=== PATIENT | male | born 1965 | race American Indian/Alaskan Native ===

== ENCOUNTER 2016-10-26 20:51 | Emergency (ER) | payer BC ==
[2016-10-27 01:27] LABS: Bilirubin,Urine NEG (Negative); Blood,Urine SM (Negative); Ketones,Urine NEG (Negative); Leukocyte Esterase,Urine NEG (Negative); Nitrite,Urine NEG (Negative); Urobilinogen,Urine < 2.0 mg/dL (<2.0); WBC,Urine < 1.0 /HPF (0.0-6.0)
[2016-10-27 01:27] LABS: Hematocrit 43.6 % (35.5-45.6); Hemoglobin 14.7 gm/dl (11.8-15.2); Mean Corpuscular HGB Conc 34 % (32-34); Mean Corpuscular Hemoglobin 29 pg (28-32); Mean Corpuscular Volume 86 fl (84-94); Platelet Count 206 K/mm3 (140-440); Red Blood Count 5.08 M/mm3 (3.65-5.03); Red Cell Distribution Width 14.1 % (13.2-15.2); White Blood Count 6.2 K/mm3 (4.5-11.0)
[2016-10-27 01:45] LABS: Anion Gap 16 mmol/L; BUN/Creatinine Ratio 16.66; Blood Urea Nitrogen 15 mg/dL (9-20); Calcium 9.2 mg/dL (8.4-10.2); Carbon Dioxide 27 mmol/L (22-30); Chloride 100.6 mmol/L (98-107); Glucose 47 mg/dL (75-100); Sodium 140 mmol/L (137-145)
--- NOTE | 2016-10-27 01:55 | XRay Report ---
FINAL REPORT EXAM: XR CHEST ROUTINE 2V HISTORY: hypoglycemia, questionable pneumonia TECHNIQUE: Frontal and lateral chest x-ray. PRIORS: None. FINDINGS: Cardiac and mediastinal silhouette within normal limits. Lungs are normally expanded. No focal consolidation, pleural effusion or apparent pneumothorax. IMPRESSION: 1. No acute consolidation.
[2016-10-27] MEDS ORDERED: D50W (25GM) IV ONE ×3 (03:34→05:59)
--- NOTE | 2016-10-27 03:52 | Emergency Department Report ---
ED General Adult HPI - General Chief complaint: Hypoglycemia Stated complaint: LOW BLOOD GLUCOSE Time Seen by Provider: 10/27/16 03:40 Source: patient Mode of arrival: Ambulatory Limitations: No Limitations - History of Present Illness Initial comments: This is a 51-year-old male. He is previously unknown to me. He has a past medical history of diabetes. He reports that he takes insulin in the morning and insulin at night. He reports that he takes 16 units of Novolin N in the morning, and 7 units of novolin R in the am as well; at nighttime he typically takes 10 units of Novolin N and he takes 4 units of Novolin r. 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 Patient reports that he ate normally yesterday, but while at work did not eat much of anything and began to feel like his sugar was "low." He denies headache, neck pain, chest pain, abdominal pain, shortness of breath, cough, irritative and obstructive urinary symptoms. In the ER, patient was found to be hypoglycemic, he was fed, given D50, and remained asymptomatic. He has no complaints at this time, and he reports that his sensation of hypoglycemia has subjectively resolved, and he reports that he has someone at home to watch over him. -: Gradual Consistency: now resolved Improves with: eating, medication Worsens with: other (not eating) Associated Symptoms: denies: confusion, chest pain, cough, diaphoresis, fever/ chills, headaches, loss of appetite, malaise, nausea/vomiting, rash, shortness of breath, syncope, weakness - Related Data Home Medications Medication Instructions Recorded Confirmed Last Taken Insulin NPH, Human [NovoLIN N] 1,000 unit SQ ONCE 10/27/16 10/27/16 Unknown NovoLIN 70/30 10/27/16 Unknown Allergies Allergy/AdvReac Type Severity Reaction Status Date / Time No Known Allergies Allergy Unverified 03/27/14 11:17 ED Review of Systems ROS: Stated complaint: LOW BLOOD GLUCOSE Other details as noted in HPI Constitutional: denies: fever Eyes: denies: vision change ENT: denies: epistaxis Respiratory: denies: cough Cardiovascular: denies: chest pain Gastrointestinal: denies: abdominal pain Genitourinary: denies: dysuria Musculoskeletal: denies: back pain Skin: denies: lesions Neurological: denies: headache Psychiatric: denies: anxiety ED Past Medical Hx - Past Medical History Hx Hypertension: Yes Hx Diabetes: Yes - Surgical History Past Surgical History?: No - Social History Smoking Status: Never Smoker Substance Use Type: Alcohol - Medications Home Medications: Home Medications Medication Instructions Recorded Confirmed Last Taken Type Insulin NPH, Human [NovoLIN N] 1,000 unit SQ ONCE 10/27/16 10/27/16 Unknown History NovoLIN 70/30 10/27/16 Unknown History ED Physical Exam - General Limitations: No Limitations General appearance: alert, in no apparent distress - Head Head exam: Present: atraumatic, normocephalic - Eye Eye exam: Present: normal appearance, EOMI. Absent: nystagmus - ENT ENT exam: Present: normal exam, normal orophraynx, mucous membranes moist, normal external ear exam - Neck Neck exam: Present: normal inspection, full ROM. Absent: tenderness, meningismus - Respiratory Respiratory exam: Present: normal lung sounds bilaterally. Absent: respiratory distress, wheezes, rales, rhonchi, stridor, chest wall tenderness, accessory muscle use, decreased breath sounds, prolonged expiratory - Cardiovascular Cardiovascular Exam: Present: regular rate, normal rhythm, normal heart sounds. Absent: bradycardia, tachycardia, irregular rhythm, systolic murmur, diastolic murmur, rubs, gallop - GI/Abdominal GI/Abdominal exam: Present: soft, normal bowel sounds. Absent: distended, tenderness, guarding, rebound, rigid, pulsatile mass - Rectal Rectal exam: Present: deferred - Extremities Exam Extremities exam: Present: normal inspection, full ROM, normal capillary refill. Absent: tenderness, pedal edema, joint swelling, calf tenderness - Back Exam Back exam: Present: normal inspection, full ROM. Absent: tenderness, CVA tenderness (R), CVA tenderness (L), muscle spasm, paraspinal tenderness, vertebral tenderness - Neurological Exam Neurological exam: Present: alert, oriented X3, normal gait, other (Extraocular movements intact. Tongue midline. No facial droop. Facial sensation intact to light touch in the V1, V2, V3 distribution bilaterally. 5 and 5 strength in 4 extremities.. Sensation is intact to light touch in 4 extremities.). Absent : motor sensory deficit - Psychiatric Psychiatric exam: Present: normal affect, normal mood - Skin Skin exam: Present: warm, dry, intact, normal color. Absent: rash ED Course Vital Signs 10/26/16 22:18 Temperature 98.7 F Pulse Rate 77 Respiratory 18 Rate Blood Pressure 149/86 O2 Sat by Pulse 99 Oximetry ED Medical Decision Making - Lab Data Result diagrams: 10/27/16 01:17 10/27/16 01:17 Vital Signs 10/26/16 22:18 Temperature 98.7 F Pulse Rate 77 Respiratory 18 Rate Blood Pressure 149/86 O2 Sat by Pulse 99 Oximetry Lab Results 10/26/16 10/27/16 10/27/16 Range/Units 22:18 01:11 01:17 WBC 6.2 (4.5-11.0) K/mm3 RBC 5.08 H (3.65-5.03) M/mm3 Hgb 14.7 (11.8-15.2) gm/dl Hct 43.6 (35.5-45.6) % MCV 86 (84-94) fl MCH 29 (28-32) pg MCHC 34 (32-34) % RDW 14.1 (13.2-15.2) % Plt Count 206 (140-440) K/mm3 Sodium (137-145) mmol/L Potassium (3.6-5.0) mmol/L Chloride (98-107) mmol/L Carbon Dioxide (22-30) mmol/L Anion Gap mmol/L BUN (9-20) mg/dL Creatinine (0.8-1.5) mg/dL Estimated GFR ml/min BUN/Creatinine Ratio % Glucose (75-100) mg/dL POC Glucose 262 H (70-105) Calcium (8.4-10.2) mg/dL Urine Color Yellow (Yellow) Urine Turbidity Clear (Clear) Urine pH 6.0 (5.0-7.0) Ur Specific [place] 1.015 (1.003-1.030) Urine Protein 100 mg/dl (Negative) mg/dL Urine Glucose (UA) >=500 (Negative) mg/dL Urine Ketones Neg (Negative) mg/dL Urine Blood Sm (Negative) Urine Nitrite Neg (Negative) Urine Bilirubin Neg (Negative) Urine Urobilinogen < 2.0 (<2.0) mg/dL Ur Leukocyte Esterase Neg (Negative) Urine WBC (Auto) < 1.0 (0.0-6.0) /HPF Urine RBC (Auto) 1.0 (0.0-6.0) /HPF U Epithel Cells (Auto) < 1.0 (0-13.0) /HPF 10/27/16 10/27/16 Range/Units 01:17 04:06 WBC (4.5-11.0) K/mm3 RBC (3.65-5.03) M/mm3 Hgb (11.8-15.2) gm/dl Hct (35.5-45.6) % MCV (84-94) fl MCH (28-32) pg MCHC (32-34) % RDW (13.2-15.2) % Plt Count (140-440) K/mm3 Sodium 140 (137-145) mmol/L Potassium 4.0 (3.6-5.0) mmol/L Chloride 100.6 (98-107) mmol/L Carbon Dioxide 27 (22-30) mmol/L Anion Gap 16 mmol/L BUN 15 (9-20) mg/dL Creatinine 0.9 (0.8-1.5) mg/dL Estimated GFR > 60 ml/min BUN/Creatinine Ratio 16.66 % Glucose 47 L (75-100) mg/dL POC Glucose 228 H (70-105) Calcium 9.2 (8.4-10.2) mg/dL Urine Color (Yellow) Urine Turbidity (Clear) Urine pH (5.0-7.0) Ur Specific [place] (1.003-1.030) Urine Protein (Negative) mg/dL Urine Glucose (UA) (Negative) mg/dL Urine Ketones (Negative) mg/dL Urine Blood (Negative) Urine Nitrite (Negative) Urine Bilirubin (Negative) Urine Urobilinogen (<2.0) mg/dL Ur Leukocyte Esterase (Negative) Urine WBC (Auto) (0.0-6.0) /HPF Urine RBC (Auto) (0.0-6.0) /HPF U Epithel Cells (Auto) (0-13.0) /HPF - Radiology Data Radiology results: report reviewed, image reviewed interpreted by me: X-ray of the chest is negative for acute disease - Medical Decision Making Differential diagnosis: Hypoglycemia, now resolved, pneumonia, urinary tract infection, in adequate oral intake Assessment and plan: 51-year-old male with resolved hypoglycemia, most likely in the context of an adequate oral intake and dehydration. He was observed in the ER for a prolonged period of time. He was given D50, head, and did not clinically decompensate. He does not take any oral hypoglycemic medications. He reports that he is somewhat home to watch over him. He is suitable for discharge at this point in time, is instructed to make certain that he eats adequately while working in the hot sun. Critical care attestation.: If time is entered above; I have spent that time in minutes in the direct care of this critically ill patient, excluding procedure time. ED Disposition Clinical Impression: History of hypoglycemia Disposition: DC-01 TO HOME OR SELFCARE Is pt being admited?: No Does the pt Need Aspirin: No Condition: Stable Instructions: Diabetic Hypoglycemia (ED) Additional Instructions: Make certain to eat enough food while working in the hot sun. Follow-up with your primary care doctor within the next 2 weeks. Return to the ER readily with fevers, chills, chest pain, shortness of breath, lethargy, irritability, projectile vomiting, change in mental status, severe pain. Referrals: OSEAS MENDEZ JR, MD [Primary Care Provider] - 3-5 Days
[2016-10-27 04:43] VITALS: BP 160/79
== END 2016-10-27 05:00 | disposition home or self-care (01) ==
LOC: ED 20:51
DX: E11.649 Type 2 diabetes mellitus with hypoglycemia without coma (principal); I10 Essential (primary) hypertension; Z79.4 Long term (current) use of insulin
CPT/HCPCS: 36415; 71020; 80048; 81001; 82962; 85027; 96374

== ENCOUNTER 2017-05-21 07:27 | Emergency (ER) | payer BC ==
[2017-05-21 08:34] LABS: Basophils % (Auto) 1.1 % (0.0-1.8); Eosinophils # (Auto) 0.1 K/mm3 (0.0-0.4); Hematocrit 47.2 % (35.5-45.6); Hemoglobin 15.5 gm/dl (11.8-15.2); Lymphocytes # (Auto) 1.2 K/mm3 (1.2-5.4); Lymphocytes % (Auto) 28.8 % (13.4-35.0); Mean Corpuscular HGB Conc 33 % (32-34); Mean Corpuscular Hemoglobin 28 pg (28-32); Mean Corpuscular Volume 85 fl (84-94); Monocytes # (Auto) 0.6 K/mm3 (0.0-0.8); Monocytes % (Auto) 15.5 % (0.0-7.3); Platelet Count 240 K/mm3 (140-440); Red Blood Count 5.54 M/mm3 (3.65-5.03)
[2017-05-21 08:56] LABS: BUN/Creatinine Ratio 17; Blood Urea Nitrogen 12 mg/dL (9-20); Calcium 8.9 mg/dL (8.4-10.2); Hemolysis Index 12
[2017-05-21 11:54] VITALS: BP 191/94
[2017-05-21] MEDS ORDERED: BACTRIM DS PO ONE (12:36)
--- NOTE | 2017-05-21 12:42 | Emergency Department Report ---
ED Lower Extremity HPI - General Chief Complaint: Extremity Injury, Lower Stated Complaint: LEFT ANKLE/FOOT SWOLLEN Time Seen by Provider: 05/21/17 11:50 Source: patient Mode of arrival: Ambulatory Limitations: No Limitations - History of Present Illness Initial Comments: 51-year-old male with a past medical history of insulin-dependent diabetes and hypertension presents to the hospital complaining of left great toe pain and swelling 1 week. Patient thinks he has an ingrown toenail. Patient has chronic numbness and pain secondary to neuropathy and recent out of his gabapentin. Pain is moderate in intensity and worse with palpation. No complaints of fever or other controlled glucose. Patient does have a tank filler Dr. Collier but he cannot remember the whole name. - Related Data Home Medications Medication Instructions Recorded Confirmed Last Taken Insulin NPH, Human [NovoLIN N] 1,000 unit SQ ONCE 10/27/16 10/27/16 Unknown NovoLIN 70/30 10/27/16 Unknown Previous Rx's Medication Instructions Recorded Last Taken Type Gabapentin [Neurontin] 300 mg PO Q8HR #90 capsule 05/21/17 Unknown Rx Sulfamethoxazole/Trimethoprim 1 each PO BID #20 tablet 05/21/17 Unknown Rx [Bactrim DS TAB] traMADol [Ultram 50 MG tab] 50 mg PO Q6HR PRN #20 tablet 05/21/17 Unknown Rx Allergies Allergy/AdvReac Type Severity Reaction Status Date / Time No Known Allergies Allergy Verified 05/21/17 07:48 ED Review of Systems ROS: Stated complaint: LEFT ANKLE/FOOT SWOLLEN Other details as noted in HPI Comment: All other systems reviewed and negative Other: Constitutional: No fevers chills Eyes: No eye pain visual changes ENT: No ear pain or throat pain Neck: Denies pain Respiratory: Denies cough wheezing shortness of breath Cardiovascular: Denies chest pain, palpitations, syncope GI: Denies abdominal pain, nausea, vomiting, diarrhea : Denies dysuria, urinary frequency, or urgency Musculoskeletal: as per hpi Skin: as per hpi Neurologic: Denies headache, numbness, weakness Psychiatric: Denies suicidal ideation, hallucinations ED Past Medical Hx - Past Medical History Hx Hypertension: Yes Hx Diabetes: Yes - Surgical History Past Surgical History?: No - Social History Smoking Status: Never Smoker Substance Use Type: None - Medications Home Medications: Home Medications Medication Instructions Recorded Confirmed Last Taken Type Insulin NPH, Human [NovoLIN N] 1,000 unit SQ ONCE 10/27/16 10/27/16 Unknown History NovoLIN 70/30 10/27/16 Unknown History Gabapentin [Neurontin] 300 mg PO Q8HR #90 capsule 05/21/17 Unknown Rx Sulfamethoxazole/Trimethoprim 1 each PO BID #20 tablet 05/21/17 Unknown Rx [Bactrim DS TAB] traMADol [Ultram 50 MG tab] 50 mg PO Q6HR PRN #20 tablet 05/21/17 Unknown Rx ED Physical Exam - General Limitations: No Limitations - Other Other exam information: General: No limitations, patient is alert in no acute distress Head exam: Atraumatic, normocephalic Eyes exam: Normal appearance ENT: Moist mucous membrane, normal oropharynx Neck exam: Normal inspection, full range of motion, no meningismus nontender Respiratory exam: Clear to auscultation bilateral, no wheezes, rales, crackles Cardiovascular: Normal rate and rhythm, normal heart sounds Abdomen: Soft, nondistended, and nontender, with normal bowel sounds, no rebound, or guarding Extremity: Full range of motion Back: Normal Inspection, full range of motion, no tenderness Neurologic: Alert, oriented x3, cranial nerves intact, no motor or sensory deficit Psychiatric: normal affect, normal mood Skin: Left great toe ingrown nail causing a infection at the medial nail bed. Minimal purulent drainage. No warmth or erythema. 2+ DP pulse ED Course Vital Signs 05/21/17 05/21/17 05/21/17 07:49 11:53 11:55 Temperature 98.4 F 98.7 F Pulse Rate 70 77 Respiratory 16 16 Rate Blood Pressure 142/77 Blood Pressure 191/94 [Right] O2 Sat by Pulse 100 100 Oximetry ED Lower Extremity MDM - Lab Data Result diagrams: 05/21/17 08:15 05/21/17 08:15 Lab Results 05/21/17 05/21/17 Range/Units 08:15 08:15 WBC 4.0 L (4.5-11.0) K/mm3 RBC 5.54 H (3.65-5.03) M/mm3 Hgb 15.5 H (11.8-15.2) gm/dl Hct 47.2 H (35.5-45.6) % MCV 85 (84-94) fl MCH 28 (28-32) pg MCHC 33 (32-34) % RDW 13.0 L (13.2-15.2) % Plt Count 240 (140-440) K/mm3 Lymph % (Auto) 28.8 (13.4-35.0) % [place] % (Auto) 15.5 H (0.0-7.3) % Eos % (Auto) 3.0 (0.0-4.3) % Baso % (Auto) 1.1 (0.0-1.8) % Lymph # 1.2 (1.2-5.4) K/mm3 [place] # 0.6 (0.0-0.8) K/mm3 Eos # 0.1 (0.0-0.4) K/mm3 Baso # 0.0 (0.0-0.1) K/mm3 Seg Neutrophils % 51.6 (40.0-70.0) % Seg Neutrophils # 2.1 (1.8-7.7) K/mm3 Sodium 136 L (137-145) mmol/L Potassium 4.5 (3.6-5.0) mmol/L Chloride 100.5 (98-107) mmol/L Carbon Dioxide 24 (22-30) mmol/L Anion Gap 16 mmol/L BUN 12 (9-20) mg/dL Creatinine 0.7 L (0.8-1.5) mg/dL Estimated GFR > 60 ml/min BUN/Creatinine Ratio 17 % Glucose 240 H (75-100) mg/dL Calcium 8.9 (8.4-10.2) mg/dL - Medical Decision Making Patient has signs of a ingrown nail with infection. Will be treated with antibiotic, warm soaks, and recommended tank filler follow-up given that he is a diabetic. No signs of sepsis at this time. Patient informed to return if symptoms worsen - Differential Diagnosis paronychia, ingrown nail, cellulitis, abscess Critical Care Time: No Critical care attestation.: If time is entered above; I have spent that time in minutes in the direct care of this critically ill patient, excluding procedure time. ED Disposition Clinical Impression: Ingrown toenail of left foot with infection, Diabetes Disposition: TO HOME OR SELFCARE Is pt being admited?: No Condition: Stable Instructions: Paronychia (ED), Toenail/Fingernail Removal (ED), Diabetes Mellitus Type 2 in Adults (ED) Additional Instructions: Perform warm soaks and cleaning water in order to encourage drainage. Take the antibiotic as prescribed. Continue to monitor your sugars. If your sugars are uncontrolled, you feel sick, develop fevers, or worsening infection please return to the ER otherwise follow with your tank filler early next week. Prescriptions: Gabapentin [Neurontin] 300 mg PO Q8HR #90 capsule Sulfamethoxazole/Trimethoprim [Bactrim DS TAB] 1 each PO BID #20 tablet traMADol [Ultram 50 MG tab] 50 mg PO Q6HR PRN #20 tablet PRN Reason: Pain Referrals: your, tank filler [Other] - 2-3 Days PRIMARY CARE,MD [Primary Care Provider] - 3-5 Days Time of Disposition: 13:44
== END 2017-05-21 14:05 | disposition home or self-care (01) ==
LOC: ED 07:27
DX: L60.0 Ingrowing nail (principal); E11.9 Type 2 diabetes mellitus without complications; G62.9 Polyneuropathy, unspecified; I10 Essential (primary) hypertension
CPT/HCPCS: 36415; 80048; 85025; 99283

== ENCOUNTER 2018-10-15 09:33 | Emergency (ER) | payer BC ==
[2018-10-15 09:43] VITALS: BP 142/78
[2018-10-15] MEDS ORDERED: TETRACAINE 0.5% OU STA (10:17)
--- NOTE | 2018-10-15 10:29 | Emergency Department Report ---
ED Eye Problem HPI - General Chief complaint: Eye Problems Stated complaint: RT EYE RED/DISCHARGE/PAIN Time Seen by Provider: 10/15/18 10:07 Source: patient Mode of arrival: Ambulatory Limitations: No Limitations - History of Present Illness Initial comments: Mr. Garcia is a very pleasant 53 yo male with history of well-controlled diabetes mellitus for the past 30 years presents with visual disturbance in the right eye. He states that he also has hypertension. His PCP is Dr. Nicholas in [facility]. He remembers sleeping on the right side of his face. He woke up with visual disturbance and bloody-looking shield in the superior temporal region. no previous history of eye issues. no fever. no discharge. he states that he sees a bloody wig hair in his eye view. Normal vision in the left eye. MD chief complaint: vision change -: This morning Onset Description: awoke with symptoms Location: right eye Place: home If Injury: none Eye Symptoms: decreased vision Severity: moderate Consistency: constant Context: other (no trauma no previous history) Associated Symptoms: none - Related Data Home Medications Medication Instructions Recorded Confirmed Last Taken Insulin NPH, Human [NovoLIN N] 1,000 unit SQ ONCE 10/27/16 10/27/16 Unknown NovoLIN 70/30 10/27/16 Unknown Previous Rx's Medication Instructions Recorded Last Taken Type Gabapentin [Neurontin] 300 mg PO Q8HR #90 capsule 05/21/17 Unknown Rx Sulfamethoxazole/Trimethoprim 1 each PO BID #20 tablet 05/21/17 Unknown Rx [Bactrim DS TAB] traMADol [Ultram 50 MG tab] 50 mg PO Q6HR PRN #20 tablet 05/21/17 Unknown Rx Allergies Allergy/AdvReac Type Severity Reaction Status Date / Time No Known Allergies Allergy Verified 05/21/17 07:48 ED Review of Systems ROS: Stated complaint: RT EYE RED/DISCHARGE/PAIN Other details as noted in HPI Comment: All other systems reviewed and negative Constitutional: denies: fever, malaise Respiratory: denies: orthopnea Cardiovascular: denies: chest pain ED Past Medical Hx - Past Medical History Previous Medical History?: Yes Hx Hypertension: Yes Hx Diabetes: Yes - Surgical History Past Surgical History?: No - Social History Smoking Status: Never Smoker Substance Use Type: None - Medications Home Medications: Home Medications Medication Instructions Recorded Confirmed Last Taken Type Insulin NPH, Human [NovoLIN N] 1,000 unit SQ ONCE 10/27/16 10/27/16 Unknown History NovoLIN 70/30 10/27/16 Unknown History Gabapentin [Neurontin] 300 mg PO Q8HR #90 capsule 05/21/17 Unknown Rx Sulfamethoxazole/Trimethoprim 1 each PO BID #20 tablet 05/21/17 Unknown Rx [Bactrim DS TAB] traMADol [Ultram 50 MG tab] 50 mg PO Q6HR PRN #20 tablet 05/21/17 Unknown Rx ED Physical Exam - General Limitations: No Limitations General appearance: alert, in no apparent distress - Head Head exam: Present: atraumatic, normocephalic - Eye Eye exam: Present: conjunctival injection (right eye with conjunctival injection and medial pterygium no covering pupil) - Expanded Eye Exam Expanded Eyelids: Erythema: Right Pupils: Regular, Round: Bilateral, Reactive: Bilateral, Mydriasis: Bilateral, Miosissis: Bilateral Sclera/Conjunctival: Injection: Right (medial pterygium) Anterior chamber: Normal Inspection: Bilateral Posterior chamber: Normal Inspection: Bilateral Visual acuity (R) = 20/: 25 Visual acuity (L) = 20/: 25 IOP (R) in mmH IOP measured with: [employer]open (14) - ENT ENT exam: Present: mucous membranes moist - Neck Neck exam: Present: normal inspection, full ROM - Respiratory Respiratory exam: Present: normal lung sounds bilaterally. Absent: respiratory distress - Cardiovascular Cardiovascular Exam: Present: regular rate, normal rhythm. Absent: systolic murmur, diastolic murmur, rubs, gallop - GI/Abdominal GI/Abdominal exam: Present: soft, normal bowel sounds - Rectal Rectal exam: Present: deferred - Extremities Exam Extremities exam: Present: normal inspection - Back Exam Back exam: Present: normal inspection - Neurological Exam Neurological exam: Present: alert, oriented X3 - Psychiatric Psychiatric exam: Present: normal affect, normal mood - Skin Skin exam: Present: warm, dry, intact, normal color. Absent: rash ED Course Vital Signs 10/15/18 09:38 Temperature 98.1 F Pulse Rate 74 Respiratory 16 Rate Blood Pressure 142/78 O2 Sat by Pulse 98 Oximetry ED Medical Decision Making - Medical Decision Making Mr. Garcia presents with visual disturbance possibly vitreous hemorrhage versus retinal detachment. Dr. Kim [facility] fish hatchery manager recommended evaluation by fish hatchery manager today in the emergency department. Dr. Kim and the primary transfer nurse understand the patient will come to [facility] by private auto. Critical care attestation.: If time is entered above; I have spent that time in minutes in the direct care of this critically ill patient, excluding procedure time. ED Disposition Clinical Impression: Visual disturbance of one eye, Diabetes mellitus, Retinopathy Disposition: DC/TX-70 ANOTHER TYPE HLTHCARE Is pt being admited?: No Does the pt Need Aspirin: No Condition: Stable Additional Instructions: Please go directly to [facility]. Dr. Cedeno has discussed your case with fish hatchery manager physician neonatology Dr. Kim.
== END 2018-10-15 11:04 | disposition other institution (70) ==
LOC: ED 09:33
DX: E11.319 Type 2 diabetes mellitus with unspecified diabetic retinopathy without macular edema (principal); I10 Essential (primary) hypertension; Z79.4 Long term (current) use of insulin; Z79.899 Other long term (current) drug therapy
CPT/HCPCS: 99282